=== PATIENT | male | born 1950 | race Caucasian/White ===

== ENCOUNTER → 2021-02-17 13:25 | Outpatient (CLI) | payer MEDICARE, OTHER, SELFPAY ==
[2021-02-17 13:52] LABS: Add Manual Diff / Slide Review NO; Basophils Absolute Auto 0 /uL (0-100); Basophils Percent Auto 0.4 % (0-2); Eosinophils Absolute Auto 400 /uL (0-450); Eosinophils Percent Auto 5.1 % (2-4); Hematocrit 45.3 % (41-53); Hemoglobin 15.5 g/dL (13.5-17.5); Lymphocytes Absolute Auto 1200 /uL (1100-4500); Lymphocytes Percent Auto 15.4 % (25-40); Mean Corpuscular HGB Conc 34.2 % (30-36); Mean Corpuscular Hemoglobin 32.7 PG (26-34); Mean Corpuscular Volume 95.6 fL (80-100); Monocytes Absolute Auto 700 /uL (0-900); Monocytes Percent Auto 8.9 % (3-14); Neutrophils Absolute Auto 5400 /uL (1500-7000); Neutrophils Percent Auto 70.2 % (50-75); Platelet Count 208 X10^3/uL (150-400); Red Blood Cell Count 4.74 X10^6/uL (4.5-5.9); Red Cell Distribution Width 13.7 % (11.6-14.8); White Blood Cell Count 7.7 X10^3/uL (4.5-11.0)
[2021-02-17 13:55] LABS: Appearance Urine UA CLEAR; Bilirubin Urine UA NEGATIVE (NEGATIVE); Color Urine UA YELLOW; Glucose Urine UA NEGATIVE (Negative); Ketones Urine UA NEGATIVE (NEGATIVE); Leukocyte Esterase Urine UA NEGATIVE (NEGATIVE); Nitrite Urine UA NEGATIVE (Negative); Occult Blood Urine UA NEGATIVE (Negative); Protein Urine UA NEGATIVE (Negative); Urobilinogen Urine UA 0.2 E.U./dL (0.2)
[2021-02-17 14:01] LABS: Hemoglobin A1C% w Est Avg Glu 5.4 % (4.0-6.0)
[2021-02-17 14:04] LABS: Bacteria Urine None Seen; Culture Indicated Urine Cult Not Indicated; RBC Urine None Seen (0-5/HPF); Urine Comments Microscopic Normal; WBC Urine None Seen (0-5/HPF)
[2021-02-17 14:17] LABS: BUN Creatinine Ratio 25.3 (6-22); Blood Urea Nitrogen 25 mg/dL (9-20); Calcium 9.8 mg/dL (8.4-10.2); Carbon Dioxide 34 mmol/L (22-32); Chloride 98 mmol/L (98-107); Estimated Glomerular Filt Rate > 60.0 mL/min (>60); Glucose 96 mg/dL (80-110); HEMOLYSIS < 15 (0-50); Potassium 3.7 mmol/L (3.4-5.1); Sodium 137 mmol/L (137-145)
== END ==
PROVIDERS: Referring Provider Orthopaedic Surgery; Visit Provider Orthopaedic Surgery
DX: Z01.818 Encounter for other preprocedural examination (principal); R73.9 Hyperglycemia, unspecified; Z01.812 Encounter for preprocedural laboratory examination; N39.0 Urinary tract infection, site not specified
CPT/HCPCS: 36415; 80048; 81001; 83036; 85025; 93005

== ENCOUNTER → 2021-03-02 13:09 | Outpatient (CLI) | payer MEDICARE, OTHER, SELFPAY ==
--- NOTE | 2021-03-02 | DI.MRI.S_ITS ---
PROCEDURE: MR KNEE RT WO CON INDICATIONS: Unilateral primary osteoarthritis, right knee TECHNIQUE: Noncontrast sagittal PD fast spin echo and T2 fast spin echo with fat saturation, sagittal 3-D FLASH with fat saturation; coronal T1 spin echo and PD fast spin echo with fat saturation, and axial PD fast spin echo with fat saturation through the knee. COMPARISON: None. FINDINGS: Image quality: Excellent. Menisci: Surfacing signal is seen in the anterior horn, compatible with meniscal tear/degeneration. Deficiency of the medial meniscus, compatible with chronic tear and/or meniscectomy. Cruciate ligaments: Patient is status post anterior cruciate ligament repair. Discontinuity of the graft, compatible with full-thickness tear. Femoral and tibial tunnels are in expected positions, without widening or tunnel cysts. The posterior cruciate ligament appears intact. Medial structures: The medial collateral ligament appears intact. The posterior oblique ligament, semimembranosus tendon insertions, oblique popliteal ligament, and meniscocapsular junction appear intact. Lateral structures: The lateral collateral ligament complex is intact. The popliteus tendon appears normal. Iliotibial band appears normal, without findings to suggest friction syndrome. Anterior structures: The quadriceps and patellar tendons appear intact. No patella subluxation. No edema in the infrapatellar fat pad. No localized arthrofibrosis (cyclops lesion) in the anterior intercondylar notch. Bones and cartilage: Signal heterogeneity of the patellar hyaline cartilage with maintained thickness. Small fissure in the medial femoral condyle hyaline cartilage with surface irregularity and heterogeneity. Thinning of the posterior lateral femoral condyle hyaline cartilage small foci of subchondral edema. A 6.2 mm fissure is seen in lateral femoral condyle hyaline cartilage. Tricompartmental osteophytosis. Joint space: Moderate to large joint effusion. A 5.1 x 2.4 x 2.7 cm fluid collection is seen in the popliteal fossa. No intra-articular bodies. IMPRESSION: 1. Disruption of the anterior cruciate ligament graft. 2. Deficiency of the medial meniscus, compatible with chronic tear and or meniscectomy. 3. Surfacing signal in the anterior horn, medial meniscus, compatible with tear/degeneration. 4. Moderate to large joint effusion. 5. 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 6. Medial and lateral hyaline cartilage degenerative change. Dictated by: Bg Noonan M.D. on 03/02/2021 at 14:22 Approved by: Bg Noonan M.D. on 03/02/2021 at 14:40
== END ==
PROVIDERS: PCP Student in an Organized Health Care Education/Training Program; Referring Provider Orthopaedic Surgery; Visit Provider Orthopaedic Surgery
DX: M17.11 Unilateral primary osteoarthritis, right knee (principal); S83.511A Sprain of anterior cruciate ligament of right knee, initial encounter; M96.89 Other intraoperative and postprocedural complications and disorders of the musculoskeletal system; M25.461 Effusion, right knee
CPT/HCPCS: 73721

== ENCOUNTER → 2021-05-19 08:42 | Outpatient (CLI) | payer MEDICARE, OTHER, SELFPAY ==
[2021-05-19 12:40] LABS: COVID19 -Nasal RAPID Negative (Negative)
== END ==
PROVIDERS: PCP Student in an Organized Health Care Education/Training Program; Visit Provider Nurse Practitioner Family
DX: Z20.822 Contact with and (suspected) exposure to COVID-19 (principal)
CPT/HCPCS: 87635; C9803

== ENCOUNTER 2021-05-21 11:09 | Observation (INO) | payer MEDICARE, OTHER, SELFPAY ==
[2021-05-12 08:31] VITALS: BMI 33.7
[2021-05-20] VITALS (15 sets, daily range): BP systolic 127–168; BP diastolic 68–102; PULSE 66–83; RESP 12–20; TEMP 36.4–37.4; O2SAT 92–96; BMI 33.7
--- NOTE | 2021-05-20 06:30 | DI.RAD.S_ITS ---
PROCEDURE: XR KNEE RT 1TO2V INDICATIONS: prosthesis placement TECHNIQUE: Two view(s) of the knee acquired. COMPARISON: None. FINDINGS: Bones: Patient is status post knee joint arthroplasty. Hardware components are in expected positions. There are two small screws along the medial tibial plateau. Visualized bony structures are intact. Soft tissues: Overlying postoperative changes are noted. An intra-articular drain is present. IMPRESSION: Expected postoperative appearance of right knee arthroplasty. Dictated by: Ibis Nelson M.D. on 05/20/2021 at 14:44 Approved by: Ibis Nelson M.D. on 05/20/2021 at 14:45
[2021-05-20] MEDS: PREGABALIN 75 MG CAPSULE PO (08:50)
[2021-05-20] MEDS: ACETAMINOPHEN 325 MG TABLET 975 MG PO (08:50)
[2021-05-20] MEDS: CELECOXIB 200 MG CAPSULE PO (08:50)
[2021-05-20] MEDS: ALBUTEROL 2.5 MG/3 ML NEB (ADULT) INH (09:39)
[2021-05-20] MEDS: LACTATED RINGERS 1,000 ML 42 ML IV ×2 (09:39→11:55)
[2021-05-20] MEDS: VANCOMYCIN 1,000 MG/200 ML PIGGYBACK 200 MG IV (09:39)
--- NOTE | 2021-05-20 10:34 | PM.PREOP ---
Pre-operative Note COVID-19 COVID-19 status: Negative Interval Note History & Physical reviewed/Exam performed by Physician: Yes Changes to H&P: No
[2021-05-20] MEDS: CEFAZOLIN 2 GM/20 ML SYRINGE IV ×2 (11:18→18:33)
[2021-05-20] MEDS: TRANEXAMIC ACID 1,000 MG VIAL 1000 MG INJ ×2 (11:32→13:46)
--- NOTE | 2021-05-20 11:42 | SUR.OPER ---
Supine on padded OR bed. Pillow under head, arms secured on padded armboards <90 degree abduction. Safety belt across torso. Non-operative leg secured with tape over blanket over lower leg. Operative leg secured in DeMayo/Alex/Nathe positioner. Foam padded brace at thigh of operative leg.
[2021-05-20] MEDS: BUPIVACAINE LIPOSOME 266 MG/20 ML VIAL INJ (11:51)
[2021-05-20] MEDS: BUPIVACAINE 0.25% (PF) 60 ML, EPINEPHrine 0.3 MG INJ (11:52)
--- NOTE | 2021-05-20 14:02 | PM.OP.1 ---
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 He had prior major injury was and chronic instability. He has undergone a previous right ACL reconstruction. Was noted to have some persistent medial collateral ligament instability. He has retained internal fixation. Non-operative management has failed and the patient has requested total knee replacement. The risks, benefits and alternatives to surgery were discussed with the patient prior to proceeding. Risks discussed included, but were not limited to, failure to relieve pain, stiffness, infection, nerve damage, deep venous thrombosis, pulmonary embolism, stroke, coma, heart attack, permanent paralysis and , as well as the potential need for eventual revision of the prosthetic. Surgeon: Rebecca Huang Foreman/Pile Driving And Erection: Sherita Ortega Anesthesia Type: General and Spinal Operative Notes Findings: Severe arthritic change right knee, retained internal fixation removed without difficulty, adequate quality bone, evidence of chronic MCL instability ligament was repaired in addition to semi constrained knee arthroplasty. Closure Type: primary Specimen(s): none sent Prosthetic devices, grafts, tissues, transplants, or devices: Huang and nephew size 7 femur, size 7 tibia, +10 constrained polyethylene, two 3.5 mm suture anchors, 38 mm patella Applied: drain(s) Estimated Blood Loss (mL): 250 Blood products transfused: none Tourniquet time (min): 110 Procedure in detail: The patient was seen in the pre-operative area, where the patient identified the right knee as the operative site and this was marked with my initials. The patient received pre-operative antibiotics, and was taken to the operating room and placed on the operative table in the supine position. After satisfactory anesthesia, a multimedia instructional designer out was performed. The right leg was encircled with a tourniquet about the proximal thigh, and the leg was prepared from the toes to the tourniquet with ChloroPrep in the usual fashion and draped through sterile drapes. The leg was elevated and exsanguinated with Eschmark bandage and the tourniquet inflated to [250] mmHg pressure. The knee was approached through an approximately 22 cm incision centered over the patella and carried into the knee through a medial parapatellar arthrotomy. The incision was extended distally to allow removal of the retained internal fixation in the tibia. Dissection was carried out down distally and the screw was carefully identified and removed removing both the screw and the washer. There were retained internal sutures. A Portion of the medial and lateral meniscus was resected. Soft tissue was carefully mobilized around the patella the patella was measured with a caliper. Bone was resected from the patella and the patellar height was reconstituted with up an appropriate sized patellar component. A cover was then placed on the patella. A small amount of additional medial and lateral meniscus was resected. There was gross instability of the medial collateral ligament. The ACL reconstruction had failed. The distal femur was cut at 5?. A [+2] cut was used. It looked like an appropriate distal femoral cut and the cut was made without difficulty. The screw in the femur was not in the way of the intramedullary petrona. An extramedullary guide was used for the tibial cut. 10 mm was resected off the least affected side.The tibia was prepared. The rotation was assessed. The patient was placed in extension residual medial and lateral meniscus as well as any residual bone was carefully resected. [No] additional tibia was resected. Hemostasis was achieved especially posteriorly. Additional local was injected into the posterior capsule. The extension gap was assessed and additional releases for gap balancing were performed as necessary. There was some instability of the medial collateral ligament. I did some additional mild release on the lateral side but did not want to clair an insufficient medial collateral ligament. There was evidence of a bony avulsion of the insertion of the medial collateral ligament on the tibial side. A grass this tissue and it did appear to have some adequate competence. [place] that probably could do a medial collateral ligament repair in addition to using a more constrained poly. It was checked with the gap radio station audio engineer. The femoral component was trial was placed and the notch was finished. The rotation was assessed and the appropriate size femoral guide was placed on the distal femur and finishing cuts were made. There is no evidence of notching. The screw in the femur was removed after resecting a portion of the bone for the notch was noted that it would have been in the way of the box for the notch without removing it but it was removed without difficulty. The anterior, posterior and chamfer cuts were then made. The posterior osteophytes and soft tissues were then removed. The posterior capsule was injected with part of a mixture of 60 ml 0.25% Marcaine mixed with 20 ml Exparel for post operative pain control. The remainder of this mixture was injected into the capsule and subcutaneous tissues during cement curing. The tibial and femoral components were then placed and the knee placed through a range of motion. Range of motion was [0-130], with adequate stability throughout the range. Multiple suture anchors were placed in the posterior medial aspect of the tibia and the tissue that was noted from the medial collateral ligament was carefully mobilized. The trials were then removed, and the tibia was finished. Several of the suture anchor stitches were repaired but I left some and tied for repair after placement of final poly. The bone was prepared with pulsatile lavage, and dried with a sponge. Cement was applied and the final prosthetics placed. Excess cement was removed during and after cement curing. A brief Betadine soak was performed. After confirming there was no extruded cement posteriorly, the final tibial insert was placed. Final MCL repair was performed. The knee was copiously irrigated and the tourniquet deflated. Hemostasis was obtained with the Bovie cautery. A drain was placed and brought out superolaterally. The capsule was closed with interrupted nonabsorbable suture. The subcutaneous layer was closed with barbed sutures, and the skin with a running 3-0 V-Lock suture and Surgical glue. An Aquacel Ag dressing was applied and the patient was taken to recovery having tolerated the procedure well. Complications: none Post-operative Condition: stable Disposition: Acute Care Plan for aftercare: The patient will be maintained on a standard total knee replacement protocol with weight bearing as tolerated. The patient will receive aspirin and sequential compression devices for DVT prophylaxis. The patient will be discharged home when safe for the home environment.
[2021-05-20] MEDS: OXYCODONE IR 5 MG TABLET PO (14:28)
[2021-05-20] MEDS: fentaNYL 100 MCG/2 ML INJ IV ×2 (14:29→14:50)
[2021-05-20] MEDS: LACTATED RINGERS 1,000 ML 120 ML IV (14:32)
--- NOTE | 2021-05-20 14:47 | PC.NURSE ---
Day shift: Dr Huang aware of Pt drinking approx [address] Huang to order CIWA and CIWA medication.
--- NOTE | 2021-05-20 15:32 | PC.NURSE ---
Day shift: Pt on AC unit at approx 1530 from PACU. He is A&Ox4. Calm and cooperative with care. 2L NC 95%. Reports rt knee pain 09/28. VS WNL. PPP and CMS ok. LINSEY wrap and Aquacel CDI. Paolo-vac is clamped at this time. Tolerating SCD's. No Gregory. Oriented to room and call light. Call light in reach. Bed alarm is on. High fall risk for now.
--- NOTE | 2021-05-20 15:38 | SUR.PHASEI ---
05/20/[id number]-Ybgg awake,oriented x4, and meets criteria for transfer to room. Vss. Report to Les ARMANDO by phone. Reported by PANTOGRAPH TRANSFERRER and anesthesia about amount of vodka per day patient goes thru (calculated to be 13 shots in conversion). no withdrawl seen. Patient in good spirits telling jokes . pain down to 5/10. offered 2nd pain pill, since goal is 3/10. Patient refuses for now. Passed info on to RN on floor. dressing rle wnl. moves BLE well/strongly and no numb/tingling/paresthesia per patient report. csm wnl rle. Hemovac remains clamped off from OR. 1520-to floor on 2l nc oxygen, 2 bags of clothes and walker with patient to room 220 via bed. handoff at room at 1530.
[2021-05-20] MEDS: LACTATED RINGERS 1,000 ML 100 ML IV (15:45)
[2021-05-20] MEDS: IBUPROFEN 400 MG TABLET PO ×2 (16:08→20:52)
[2021-05-20] MEDS: ACETAMINOPHEN 325 MG TABLET 650 MG PO ×2 (16:08→20:51)
--- NOTE | 2021-05-20 16:57 | PC.NURSE ---
Day shift: Left message on Dr Huang's cell about ordering CIWA, based on Pt's Hx. No orders at this time (1700).
--- NOTE | 2021-05-20 18:38 | PC.NURSE ---
Day shift: Pt with no s/s of ETOH withdrawal. No nausea after dinner. Pain rt knee remains 5/10. Call light in reach and bed alarm is on.
[2021-05-20] MEDS: OXYCODONE IR 10 MG TABLET PO (19:28)
--- NOTE | 2021-05-20 19:38 | PC.NURSE ---
Dr. Huang seen pt. @ 1937. Hemovac was clamped @ 1937 will remove the clamp after 2 hrs. CIWA assessment done score @ zero. C/O pain 10 medicated with 10 mg. of Oxycodone. Checked VS B/P 145/80, HR. 71, RR 16 & temp. 97.6, 1 liter 02/NC SPO2 93-94%. Will cont. POC & monitor.
[2021-05-20] MEDS: ALBUTEROL/IPRATROPIUM 3 ML AMPUL INH (20:32)
[2021-05-20] MEDS: BUDESONIDE 0.5 MG/2 ML NEB INH (20:33)
[2021-05-20] MEDS: ASPIRIN EC 81 MG TABLET PO (20:52)
[2021-05-20] MEDS: DOCUSATE 100 MG CAPSULE PO (20:52)
[2021-05-20] MEDS: VIT C/E/ZN/COPPR/LUTEIN/ZEAXAN CAPSULE 1 CAP PO (20:52)
--- NOTE | 2021-05-20 21:57 | PC.NURSE ---
Hemovac unclamped @2117, pt. stood up @ the bedside & voided 550 cc of clear urine.
[2021-05-21] MEDS: IBUPROFEN 400 MG TABLET PO ×4 (00:35→13:24)
[2021-05-21] MEDS: CEFAZOLIN 2 GM/20 ML SYRINGE IV (02:11)
[2021-05-21] MEDS: SODIUM CHLORIDE 0.9% FLUSH 10 ML IV ×2 (02:30→08:49)
[2021-05-21 04:00] VITALS: BP 137/86; PULSE 64; RESP 20; TEMP 36.3; O2SAT 93
[2021-05-21 05:55] LABS: Hematocrit 33.7 % (41-53); Hemoglobin 11.6 g/dL (13.5-17.5)
--- NOTE | 2021-05-21 06:28 | PC.NURSE ---
0620 Dr. Pompa receiving distribution station operator for Dr. Huang to notified that HV put out 410 cc from 2300 to 0612. Also reported H&H was 11.6 & 33.[address] order received. Dr. Pompa stated Dr. Huang will see patient this morning. Maria Luisa Valdez RN coordinator also notified, rechecked dressings & tamir wrap this morning it is clean, dry & intact. Will report to day RN.
[2021-05-21 07:45] VITALS: BP 108/56; PULSE 62; RESP 18; TEMP 36.8; O2SAT 97
[2021-05-21] MEDS: OXYCODONE IR 10 MG TABLET PO ×2 (08:48→14:28)
[2021-05-21] MEDS: polyethylene glycoL 3350 17 GM POWD.PACK PO (08:48)
[2021-05-21] MEDS: DOCUSATE 100 MG CAPSULE PO (08:48)
[2021-05-21] MEDS: VIT C/E/ZN/COPPR/LUTEIN/ZEAXAN CAPSULE 1 CAP PO (08:49)
[2021-05-21] MEDS: ASPIRIN EC 81 MG TABLET PO (08:49)
[2021-05-21] MEDS: ACETAMINOPHEN 325 MG TABLET 650 MG PO ×2 (08:49→14:28)
--- NOTE | 2021-05-21 10:08 | PC.NURSE ---
Day shift: Per Dr Huang -clamp drain for 2 hours. Unclamp for [address] Huang with results. Plan is to d/c home later today.
--- NOTE | 2021-05-21 10:35 | PT.IIE ---
Current Diagnoses Unilateral primary osteoarthritis, right knee (05/20/21) Other internal derangements of right knee (05/20/21) Surgery Performed Operation Date: 05/20/21 10:45 Actual Procedures p Total Knee Arthroplasty & removal of internal fixation, repair medial collateral ligament(Right) - Rebecca Huang MD Medical History (Last Updated 05/12/21 @ 08:54 by Jalyn Darling RN) Arthritis Asthma COPD (chronic obstructive pulmonary disease) Deviated septum Easy bruisability Hearing impaired HTN (hypertension) Osteoarthritis Prostate cancer (2013) Physical Therapy Inpatient Evaluation/Re-Eval M1 PT/OT-IP Prior Functional Status Start: 05/21/21 10:19 Freq: Status: Active Protocol: Document 05/21/21 09:34 MB (Rec: 05/21/21 10:35 MB [id number]) Medical Review Prior Functional Status Medical History Reviewed Yes Diet/Fluid Consistency Regular Communication WNLs Mobility and Gait I Activities of Daily Living and IADL's I Prior Functional Level (Other details) I Social History Household Members none Living Arrangements House Number of Floors (Floors) One Floor Number of Stairs To Enter/Railing? 2 steps and no rail to enter Home Environment Standard Height Toilet Home Equipment Front Wheel Walker Employment Status Retired Additional Social History Comment Pt states that he has renters living in the bottom floor of his house, a daughter and son on the property as well but he does not anticipate a lot of assist at d/c. He keeps his cell phone on him, has microwave meals available and is scheduled for OPPT next week. M2 PT-IP Current Condition Start: 05/21/21 10:19 Freq: Status: Active Protocol: Document 05/21/21 09:34 MB (Rec: 05/21/21 10:35 MB [id number]) Physical Therapy Current Condition Current Condition Evaluation Date 05/21/21 Treatment Diagnosis R TKA Onset Date 05/20/21 M3 PT-IP Subjective Start: 05/21/21 10:19 Freq: Status: Active Protocol: Document 05/21/21 09:34 MB (Rec: 05/21/21 10:35 MB [id number]) Subjective Physical Therapy Visit Type Type Initial Evaluation Visit Start Time 09:34 Visit Stop Time 10:07 Total Visit Minutes 33 Number of MATERIALS SCIENTIST Visits 0 Physical Therapy Visit Comments Patient Comments Pt states that he tried to get up on his leg yesterday and it didn't go well. Patient Goals To go home Therapy Pain Assessment Pain When Pain Assessed At Rest Pain Present Pain Present Pain Reported Location rt knee Intensity 3 Scale Used Numeric (0 - 10) Description Acute Pain Management Techniques Re-positioning,Timing of Activity with Medications M4 PT-IP Mobility and Gait Start: 05/21/21 10:19 Freq: Status: Active Protocol: Document 05/21/21 09:34 MB (Rec: 05/21/21 10:35 MB [id number]) PT-Bed Mobility Assessment Sit to Supine Sit to Supine Independent,Head of Bed Elevated,Bedrails Scooting Scooting to Edge of Bed Independent PT-Transfer Assessment Sit to and From Stand Sit to and from Stand Independent Equipment Transfer Assistive Device Gait Belt,Front Wheeled Walker Orthotic/Prosthetic Devices or Brace: No Transfers Transfer Destination Chair Transfer Technique Stand Step Pivot Transfer Ability Level of Assist Independent Comments Mobility Comments Pt mobilizes well in the bed, to the edge of bed, up to the walker and to chair with walker after gait. He backs up to the chair and reaches for it before sitting. He does not require cues to push up from the bed. PT adjusts his walker from home and pt uses it for gait. Gait Assessment Gait Gait Assistance Required: Independent,Standby Assistance Distance (Feet) 100 Able to Maintain Weight Bearing Status Yes During Gait Assistive Devices Assistive Device Gait Belt,Front Wheeled Walker Orthotic/Prosthetic Devices or Brace: No Gait Deviations General Gait Pattern Antalgic,Decreased Stride Length,Decreased Feet Clearance,Flexed Trunk Factors Limiting Gait Function Factors Limiting Gait Function Decreased Strength,Limited Range of Motion,Pain,Poor Balance Comments Gait Comments Pt gait trains 50'x4 today with slow gait, decreased step -length and foot clearance with right foot drag and pt reporting that right leg feels imbalanced if it extends too much. His pattern is step-to with heavy reliance upon the rolling walker and he requires cues to keep feet inside walker and not to step too close to the front of it. No LOB with gait with walker today. Stair Climbing Assessment Evaluation Level of Assist On Stairs Minimal Assistance,1 Person Assistance Devices Stair Climbing Assistive Devices Front Wheel Walker Technique/Endurance Stair Climbing Direction Ascend and Descend Stair Climbing Technique Step to Step Number of Steps Climbed 2 Query Text: Stair Climbing Set # Repetitions (reps) 1 Comments Stair Climbing Comments Stair training with RW in front and pt going up the steps backwards as he does not have a rail at home. Ascend left foot first and right foot second, PT in front blocking walker. Pt performs well and states he feels he can do this with person who is pickin him up from the hospital. His carport is covered and he does not anticipate snow on it. PT-Balance Assessment Sitting Balance and Reactions Static Sitting Balance Ability Normal Dynamic Sitting Balance Ability Normal Standing Balance and Reactions Static Standing Balance Ability Good Dynamic Standing Balance Ability Good Device Used RW M5 PT-IP Objective Assessments Start: 05/21/21 10:19 Freq: Status: Active Protocol: Document 05/21/21 09:34 MB (Rec: 05/21/21 10:35 MB [id number]) Orientation Orientation/Cognition Level of Alertness Alert Orientation Name,Age,Birthday,Month,Date, Year,Day of Week,Place, Situation Language Function Ability No Deficits Noted Safety Awareness Understands Safety Issues Memory Description No Deficits Noted Gross Range of Motion Upper Extremity ROM Assessment Within Functional Limits Lower Extremity ROM Assessment Right Impaired Impairments Decreased ROM right knee with dressing limiting true range assessment. He lacks full knee extension with gait and largely self-limits range Strength Upper Extremity Strength Assessment Within Functional Limits Lower Extremity Strength Assessment Right Impaired Comments Strength Comments MMT RLE deferred d/t pain and he presents with weakness in all joints functionally with gait--slides foot across the floor and decreased DF, heel strike and toe push off M6 PT-IP Treatment Start: 05/21/21 10:19 Freq: Status: Active Protocol: Document 05/21/21 09:34 MB (Rec: 05/21/21 10:35 MB [id number]) Physical Therapy Treatment Exercises Exercises Ankle Pumps,Quad Sets,Heel Slides,Short Arc Quads,Seated Knee Flexion/Extension Education Education Provided Weight Bearing Status,Safety M7 PT-IP Assessment and Plan Start: 05/21/21 10:19 Freq: Status: Active Protocol: Document 05/21/21 09:34 MB (Rec: 05/21/21 10:35 MB [id number]) PT Summary Assessment and Plan Potential Rehabilitation Potential Good Status of Condition at Evaluation Stable Summary Assessment Summary Pt is a 71 y/o male presenting with decreased range of motion, strength and function of his right knee s/p right TKA. He requires heavy reliance upon RW for gait training and requires cues to properly use walker. He is CGA to then mod I with gait with walker. He requires min A for the walker to ascend and descend two steps and his neighbor will assist him in the house. He is set-up for OPPT and does not have anyone staying with him when he gets home, though family is on the same property. He keeps his cell phone on him. PT does encourage pt to have someone stay with him for a couple of nights. His BP and HR do not read well with standard cuff and when larger cuff donned on left UE after gait in sitting , BP is 107/85. Will d/c acute PT. Frequency of Treatment Frequency Of Treatment Discharge Weight Bearing Status Weight Bearing Status Weight Bear as Tolerated Recommendations To Nursing Amount of Assist Needed Standby Assistance Discharge Recommendations PT Discharge Recommendations Home with Assistance, Outpatient PT Transportation Needs at Discharge Private Vehicle
--- NOTE | 2021-05-21 10:44 | PM.PNPO.1 ---
Subjective Subjective Date Patient Seen: 05/21/21 Time Patient Seen: 10:45 Interval history: He notes he is doing well. Minimal pain. He is ambulating well in the alb[place]. Did have some moderate drainage overnight. He is not lightheaded when he ambulates. Exam Vital Signs (past 8 hours): - 05/21/21 04:00 05/21/21 07:45 Temperature 97.4 F L 98.2 F Pulse Rate 64 62 Respiratory Rate 20 18 Blood Pressure 137/86 108/56 L Pulse Oximetry 93 97 Oxygen Delivery Method Nasal Cannula Oxygen Flow Rate 0 Narrative Exam Narrative: Dressing is intact Hemovac drain is in place appears to be appropriately clotted. Calf is soft, is able to do an active straight leg raise is neurologically intact distally Objective Labs Result Diagrams: 05/21/21 05:34 Labs: Laboratory Results - last 24 hr 05/21/21 05:34 Hgb 11.6 L Hct 33.7 L PFSH Medical History (Updated 05/12/21 @ 08:54 by Jalyn Darling RN) Arthritis Asthma COPD (chronic obstructive pulmonary disease) Deviated septum Easy bruisability Hearing impaired HTN (hypertension) Osteoarthritis Prostate cancer (2013) Surgical History (Updated 05/12/21 @ 08:51 by Jalyn Darling RN) History of vasectomy (~1975) Hx of colonoscopy with polypectomy Hx of knee surgery (2012) Social History household members: none Smoking Status: Former smoker alcohol intake: current Assessment & Plan Post-op Postoperative Procedures: Procedures Operation Date: 05/20/21 10:45 Actual Procedure Side Surgeon p Total Knee Arthroplasty & removal of internal fixation, repair medial collateral ligament Right Rebecca Huang MD Postoperative day: 1 Postoperative status: doing well Postoperative status narrative: Doing well postoperative day 1. Slight excessive drainage but decreasing. We will clamp a strain for 2 hours and then unclamp it. Postoperative plan: routine post-op care Postoperative plan narrative: Doing reasonably well. We are going to discharge him to home in the afternoon.
[2021-05-21 11:20] VITALS: BP 116/77; PULSE 67; RESP 18; TEMP 37.2; O2SAT 93
--- NOTE | 2021-05-21 13:03 | PC.NURSE ---
Day shift: Paolo-vac unclamped at [address] Huang. Will measure output in 1 hour and report finding back to her.
--- NOTE | 2021-05-21 14:22 | PC.NURSE ---
Day shift: Paolo-vac put out 130mls and Dr Huang informed. Per Dr Huang it is OK to d/c drain and Pt can go home now.
--- NOTE | 2021-05-21 14:49 | CM.IDA ---
Initial DCP Assessment Note Pt is a 71 yo male, resident of [place], now POD#1 from [facility] TKA by Dr Huang PCP: Allison Negron Payer: NIGEL/Fredy Reviewed chart, pt discussed in multidisciplinary rounds this morning. Therapy has cleared pt for return home w/family to assist and pt has planned for home, DC order from Ortho has already been initiated this morning. No needs expected from DC planning team although will remain available in case this changes today. ANDREWS Olmos
--- NOTE | 2021-05-21 14:54 | PC.NURSE ---
Day shift: Paperwork signed and all questions answered. Paolo-vac removed and dressed per Dr Huang verbal instructions. Pt has all personal belongings with him now. His friend is driving him home. Taken to that car via WC by CONSULTING MANAGER. Aquacel remains CDI. Paolo-vac site covered with ea 4x4 gauze and ABD dressing and wrapped with Coban and LINSEY wrap re-applied (per Dr Huang). CMS remains intact w/ PPP. Left unit at approx 1500. Next pain med dose times written and given to Pt. Med script given to Pt and he bakari drop off at his preferred pharmacy. Encouraged to use I.S. as instructed and to eat plenty of water. Encouraged to not drink any alcohol until his wound/op-site is healed.
== END 2021-05-21 15:03 | disposition home or self-care (01) ==
LOC: OR 11:31 → AC 11:31
PROVIDERS: Admitting Provider Orthopaedic Surgery; PCP Student in an Organized Health Care Education/Training Program; Referring Provider Orthopaedic Surgery; Visit Provider Orthopaedic Surgery
PROC: 0SRC0JZ Replacement of Right Knee Joint with Synthetic Substitute, Open Approach (ICD-10-PCS; CPT 27447; principal; 2021-05-20 10:45)
DX: M17.11 Unilateral primary osteoarthritis, right knee (principal); M23.8X1 Other internal derangements of right knee; J44.9 Chronic obstructive pulmonary disease, unspecified; I10 Essential (primary) hypertension
CPT/HCPCS: 27447; 36415; 73560; 85014; 85018; 94640; 97116; 97161; C1776; G0378; C9290; J0171; J0690; J1100; J2250; J2405; J2704; J3010; J7613

== ENCOUNTER → 2021-12-15 09:05 | Outpatient (CLI) | payer MEDICARE, OTHER, SELFPAY ==
[2021-05-20 15:52] VITALS: BMI 33.7
[2021-12-15 11:19] LABS: COVID19 -Nasal RAPID Negative (Negative)
== END ==
PROVIDERS: PCP Student in an Organized Health Care Education/Training Program; Visit Provider Surgery
DX: Z20.822 Contact with and (suspected) exposure to COVID-19 (principal); Z01.812 Encounter for preprocedural laboratory examination
CPT/HCPCS: 87635; C9803

== ENCOUNTER 2021-12-16 08:39 | Day surgery (SDC) | payer MEDICARE, OTHER, SELFPAY ==
[2021-05-20 15:52] VITALS: BMI 33.7
--- NOTE | 2021-12-16 | PATH_ITS ---
[facility] Accession Number: [id number] . 01 Material submitted: . PART A: colon - ASCENDING COLON POLYPS X3 PART B: colon - DESCENDING COLON POLYP PART C: sigmoid colon - SIGMOID COLON POLYPS PART D: rectum - RECTAL POLYPS . 01 Diagnosis: A. Ascending Colon, Polyp, Biopsy: Tubular adenoma in 2 of 3 fragments. . B. Descending Colon, Polyp, Biopsy: Tubular adenoma. . C. Sigmoid Colon, Polyps, Biopsy: Hyperplastic polyps. . D. Rectum, Polyps, Biopsy: Hyperplastic polyps. JNL 12/20/2021 1217 Local . 01 Electronically signed: . Kassandra Blanco MD, Pathologist NPI- [id number] . 01 Gross description: . Part A: ASCENDING COLON POLYPS X3: Received in formalin are 3 fragment(s) of beltran, soft tissue measuring 0.8 x 0.5 x 0.2 cm to 0.2 x 0.2 x 0.1 cm submitted entirely in 1 cassette(s) Part B: DESCENDING COLON POLYP: Received in formalin is 1 fragment(s) of beltran, soft tissue measuring 0.4 x 0.3 x 0.2 cm submitted entirely in 1 cassette(s) Part C: SIGMOID COLON POLYPS: Received in formalin are 2 fragment(s) of beltran, soft tissue measuring 0.5 x 0.4 x 0.1 cm to 0.3 x 0.2 x 0.2 cm submitted entirely in 1 cassette(s) Part D: RECTAL POLYPS: Received in formalin are 2 fragment(s) of beltran, soft tissue measuring 0.4 x 0.3 x 0.3 cm to 0.3 x 0.2 x 0.2 cm submitted entirely in 1 cassette(s) /CPE 12/17/2021 0507 Local . 01 Pathologist provided ICD-10: D12.2, D12.4 . 01 CPT . 155295, 534797, 207440, 793520 Specimen Comment: A courtesy copy of this report has been sent to [phone] Performed at: 01 [facility] [address] [place] [address], [place], [place] [id number] MD Bishop Pizarro MD Phone: [phone]
[2021-12-16 09:16] VITALS: BP 147/83; PULSE 64; RESP 16; TEMP 36.6; O2SAT 93; BMI 35.2
[2021-12-16] MEDS: LACTATED RINGERS 1,000 ML 42 ML IV (09:30)
--- NOTE | 2021-12-16 09:41 | PM.HP.1 ---
History of Present Illness History of Present Illness Date Patient Seen: 12/16/21 Time Patient Seen: 09:41 Chief complaint: Colonoscopy Narrative: Erik is a 71-year-old man who is due for colonoscopy. He believes his last was in 2008. He believes he had polyps on his original colonoscopy in the distant past. No known family history of colon cancer. Patient History Medical History (Updated 12/16/21 @ 09:41 by Eran Marsh MD) Arthritis Asthma COPD (chronic obstructive pulmonary disease) Deviated septum Easy bruisability Hearing impaired HTN (hypertension) Osteoarthritis Prostate cancer (2013) Surgical History (Updated 05/12/21 @ 08:51 by Jalyn Darling RN) History of vasectomy (~1975) Hx of colonoscopy with polypectomy Hx of knee surgery (2012) Family & Social History Social History: household members none Tobacco & Substance use: Tobacco type cigarettes Smoking Status Former smoker alcohol intake current alcohol intake frequency 3 or more drinks per day Substance Use Type does not use Meds Home Medications and Allergies Home Medications Medication Instructions Recorded Confirmed Type fluticasone 250 mcg-salmeterol 50 1 inh inhalation QAM 05/12/21 12/16/21 History mcg/dose blistr powdr for inhalation (Advair Diskus) ibuprofen 200 mg capsule 400 mg PO DAILY PRN pain 05/12/21 12/16/21 History lisinopril 20 1 tab PO DAILY 05/12/21 12/16/21 History mg-hydrochlorothiazide 25 mg tablet tiotropium bromide 18 mcg capsule 1 cap inhalation DAILY 05/12/21 12/16/21 History with inhalation device (Spiriva with HandiHaler) vit C 250 mg-vit E 90 mg-zinc 40 1 tab PO BID 05/12/21 12/16/21 History mg-copper 1 mv-lkszpp-grzcar capsule (PreserVision AREDS-2) aspirin 81 mg tablet,delayed 81 mg PO BID #60 tabs 05/21/21 12/16/21 Rx release albuterol sulfate 90 mcg/actuation 1 puff inhalation PRN PRN sob 12/16/21 12/16/21 History aerosol inhaler (ProAir HFA) amlodipine 2.5 mg tablet 5 mg PO DAILY 12/16/21 12/16/21 History Allergies Allergy/AdvReac Type Severity Reaction Status Date / Time No Known Drug Allergies Allergy Verified 12/16/21 09:12 Exam Vital Signs (past 8 hours): - 12/16/21 09:16 Temperature 97.9 F Pulse Rate 64 Respiratory Rate 16 Blood Pressure 147/83 H Pulse Oximetry 93 Oxygen Delivery Method Room Air Oxygen Flow Rate 0 Oxygen Delivery Method Room Air Oxygen Flow Rate 0 Const General: healthy appearing and comfortable Resp Effort & Inspection: normal respiratory effort Assessment & Plan Assessment and plan (1) Colon cancer screening: Status: Acute Plan 71-year-old man with a history of polyps in the distant past. We reviewed the risks and benefits of colonoscopy he would like to proceed. COVID-19 COVID-19 status: Negative Result date/Date tested (Pos, Neg/Pending): 12/15/21 Time Spent With Patient Critical Care time: I spent a total of [] minutes of critical care time on this patient's care today; this time is exclusive of procedural time.
[2021-12-16] MEDS: MIDAZOLAM 5 MG/5 ML VIAL 8 MG IV (10:53)
[2021-12-16] MEDS: fentaNYL 250 MCG/5 ML INJ 200 MCG IV (10:53)
--- NOTE | 2021-12-16 11:03 | PM.OP.COLON ---
Operative Date/Time/Diagnoses Date of procedure: 12/16/21 Time of procedure: 11:03 Pre-op diagnosis: Colon cancer screening Post-op diagnosis: same Procedure & Clinicians Study performed: Colonoscopy Same procedure as scheduled: Yes Surgeon: Eran Marsh Procedure Notes Procedure in detail: Surgeon: Eran Marsh MD Procedure: The patient was brought to the endoscopy suite, placed in left lateral decubitus position. The patient was connected to monitoring devices. A time-out was performed. Sedation was administered. Once the patient was adequately sedated, a digital rectal exam was performed and was normal. The scope was then inserted and advanced to the cecum where the appendiceal orifice was identified and photographed. The scope was then slowly withdrawn over greater than 6 minutes. The mucosa was thoroughly inspected. There was a 4 mm polyp in the ascending colon removed with Jumbo forceps. There were 2 polyps each about 6 mm in the ascending colon each removed with a cold snare. There was a 6 mm polyp in the descending colon removed with a cold snare. There were 2 4 mm polyps in the sigmoid colon removed with Jumbo forceps. There were 2 rectal polyps removed with Jumbo forceps. The scope was retroflexed in the rectum. No abnormalities were noted. The scope was straightened and removed. The patient was awakened and brought to recovery. Versed: 8 mg Fentanyl: 200 mcg EBL: 5 mL Findings: 3 polyps in the ascending colon, 1 polyp in the descending colon, 2 polyps in the sigmoid colon into polyps in the rectum. All polyps were less than 1 cm Scope withdrawal time: 22 Sedation minutes: 44 Post-procedure Recommendations: Will call with biopsy results Disposition: PACU
[2021-12-16 11:05] VITALS: BP 128/80; PULSE 59; RESP 22; TEMP 36.5; O2SAT 95
[2021-12-16 11:10] VITALS: BP 102/79; PULSE 60; RESP 16; O2SAT 95
[2021-12-16 11:16] VITALS: BP 123/63; PULSE 62; RESP 16; TEMP 36.6; O2SAT 95
[2021-12-16 11:20] VITALS: BP 133/78; PULSE 57; RESP 16; TEMP 36.6; O2SAT 96
== END 2021-12-16 11:34 | disposition home or self-care (01) ==
PROVIDERS: PCP Student in an Organized Health Care Education/Training Program; Referring Provider Surgery; Visit Provider Surgery
PROC: 0DJD8ZZ Inspection of Lower Intestinal Tract, Via Natural or Artificial Opening Endoscopic (ICD-10-PCS; CPT 45378; principal; 2021-12-16 10:00)
DX: Z12.11 Encounter for screening for malignant neoplasm of colon (principal); D12.2 Benign neoplasm of ascending colon; D12.4 Benign neoplasm of descending colon
CPT/HCPCS: 45385; 45380; 99152; 99153; J2250; J3010

== ENCOUNTER → 2023-07-20 08:34 | Outpatient (CLI) | payer MEDICARE, OTHER, SELFPAY ==
[2021-05-20 15:52] VITALS: BMI 33.7
--- NOTE | 2023-07-20 | DI.ECHO.S_ITS ---
[facility] +---------+ : : [address] : : : : [id number] : : : : Phone: [phone]+ Echocardiogram Report + + :Name: YVES PALACIOS Study Date: 07/20/2023 Height: 70 in : :[facility] ReadingLocation: Weight: 260 lb : : Gender: Male BSA: 2.3 m2 : :: 1950 Age: 73 yrs BP: 130/85 mmHg: :Reason For Study: PAROXYSMAL ATRIAL FIBRILLATION : :Ordering Physician: LING, : :MAYTE Hill Performed By: Nadeem Potter : :Referring: MAYTE CABRERA : + + Interpretation Summary The study quality was technically difficult. Left ventricular ejection fraction is estimated to be 50 +/- 5%. Diastolic function could not be accurately assessed due to unobtainable data. The right ventricle is mildly dilated. Right ventricular systolic function is mildly reduced. Pulmonary artery pressures cannot be estimated because of the lack of a measurable TR jet velocity but the IVC suggests a CVP of around 3 mmHg. The ascending aorta is mildly enlarged, 4.2 cm. Procedure: A two-dimensional transthoracic echocardiogram with color flow and Doppler was performed. The study quality was technically difficult. There is no prior echocardiogram noted for this patient. The patient was in normal sinus rhythm during the exam. The heart rate ranged between 53-62 bpm during the study. Left Ventricle: The left ventricle is normal in size. Left ventricular ejection fraction is estimated to be 50 +/- 5%. Regional wall motion abnormalities cannot be excluded due to limited visualization. Diastolic function could not be accurately assessed due to unobtainable data. Right Ventricle: The right ventricle is mildly dilated. Right ventricular systolic function is mildly reduced. Atria: The left atrium is not well visualized. Right atrium not well visualized. Mitral Valve: The mitral valve is normal in structure and function. There is no mitral valve stenosis. There is no mitral regurgitation noted. Aortic Valve: The aortic valve is trileaflet. There is no aortic valve stenosis. No aortic regurgitation is present. Tricuspid Valve: The tricuspid valve is normal in structure and function. There is no tricuspid stenosis. No tricuspid regurgitation. Pulmonary artery pressures cannot be estimated because of the lack of a measurable TR jet velocity but the IVC suggests a CVP of around 3 mmHg. Pulmonic Valve: The pulmonic valve is not well visualized. There is no pulmonic valvular stenosis. There is trace pulmonic regurgitation. Great Vessels: The aortic root is normal size. The ascending aorta is mildly enlarged. The IVC is of normal diameter and collapses greater than 50% with a sniff. This suggests a low right atrial pressure of 3 mm Hg. Pericardium/ Pleura There is no pericardial effusion. There is no pleural effusion. MMode/2D Measurements & Calculations LVIDd: 4.6 cm LVOT diam: 2.3 cm LVIDs: 3.3 cm Ao root diam: 4.0 cm FS: 28.1 % asc Aorta Diam: 4.2 cm IVSd: 1.5 cm LVPWd: 1.3 cm LV mcmahon. diameter/BSA (cm/m^2): 2.0 LV sys. diameter/BSA (cm/m^2): 1.4 LA A2 area: 17.5 cm2 RA long axis: 6.5 cm LA A4 area: 21.3 cm2 RA area: 24.8 cm2 LA length (vol): 5.3 cm RA vol: 79.9 ml LA vol: 59.9 ml RA : 34.2 ml/m2 LA vol index: 25.7 ml/m2 IVC diam: 1.8 cm RVD1 (basal): 4.4 cm RVD2 (mid): 3.9 cm TAPSE: 1.8 cm Doppler Measurements & Calculations Ao V2 max: 135.6 cm/sec LVOT Max Rishabh: 106.1 cm/sec Ao V2 mean: 89.1 cm/sec LV V1 max P.5 mmHg Ao max P.4 mmHg LV V1 VTI: 24.4 cm Ao mean P.7 mmHg CHIQUI(I,D): 3.6 cm2 Ao V2 VTI: 28.2 cm CHIQUI(V,D): 3.2 cm2 sev ratio: 0.87 CHIQUI indexed to BSA (cm^2/m^2): 1.5 MV E max rishabh: 55.9 cm/sec PA V2 max: 118.0 cm/sec MV A max rishabh: 86.8 cm/sec PA V2 mean: 71.7 cm/sec MV E/A: 0.64 PA mean P.3 mmHg Med Peak E' Rishabh: 4.9 cm/sec PA pr(Accel): 51.6 mmHg E/E' med: 11.5 Lat Peak E' Rishabh: 5.2 cm/sec E/E' lat: 10.7 E/e' average: 11.1 MV dec time: 0.23 sec SV(LVOT): 100.7 ml Reading Physician:05:24 PM
--- NOTE | 2023-07-22 02:16 | DI.NM.S_ITS ---
DATE OF SERVICE: 07/20/2023 PROCEDURE: Pharmacologic vasodilator stress and rest myocardial perfusion imaging with gating to assess ejection fraction and regional wall motion. ORDERING PROVIDER: Mayte Cabrera M.D. INDICATIONS: The patient is a 73-year-old obese male with exertional dyspnea and paroxysmal atrial fibrillation. CARDIAC STRESS: Per protocol, 0.4 mg of regadenoson was infused with a normal hemodynamic response. He developed minimal dyspnea but had no chest discomfort or other anginal symptoms. His resting ECG shows sinus rhythm with normal ST segments. There are no significant ST-segment shifts with stress. He had occasional isolated PVCs that resolved in recovery but no other arrhythmias. Per protocol, 24.3 millicuries of technetium-99m Myoview was injected and he was imaged 15 minutes later using a gated SPECT acquisition protocol. The day prior while at rest, he had been injected with 27.2 millicuries of technetium-99m Myoview and was imaged 15 minutes later, again using a gated SPECT acquisition protocol. FINDINGS: 1. Raw data. There is marginal tracer uptake with some motion detected that could introduce artifact and evidence for diaphragmatic attenuation. The lung/heart ratio is normal at 0.34 with a normal TID ratio of 1.05. 2. Quantitated gated SPECT: Post-stress ejection fraction is estimated at 64% without any focal wall motion abnormality and specifically the inferior wall has normal contractility. The resting ejection fraction is also 64% with mildly increased volumes with a resting end-diastolic volume of 149 mL. 3. Myocardial perfusion imaging: Post-stress supine images show a mild perfusion defect in the mid to distal inferior wall in a pattern consistent with diaphragmatic attenuation, supported by his resolution on the prone images. There are no other perfusion defects. The resting images show an identical perfusion pattern without any areas of improvement. IMPRESSION: 1. Probable normal myocardial perfusion study. 2. Subtle, fixed mid to distal inferior perfusion defect that resolves on prone imaging, most consistent with diaphragmatic attenuation artifact. There is no compelling evidence for any myocardial ischemia or previous myocardial infarction. 3. Normal left ventricular systolic function with borderline increased left ventricular volumes. 4. No angina or ECG evidence of ischemia with pharmacologic vasodilator stress. The patient remained in sinus rhythm throughout with occasional isolated PVCs with stress that resolved in recovery but no other arrhythmias. Erik French - RS/cherie/ec doc#: [id number]/job#: [id number] dd: 07/21/2023 16:35:00 dt: 07/22/2023 01:58:00 DICTATING MD/COPIES TO: Griffin Rodriguez; Mayte Cabrera M.D. COPIES MNE: SHARDA;
== END ==
LOC: ECHO 08:35
PROVIDERS: PCP Student in an Organized Health Care Education/Training Program; Referring Provider Internal Medicine Cardiovascular Disease; Visit Provider Internal Medicine Cardiovascular Disease
DX: I48.0 Paroxysmal atrial fibrillation (principal); I77.89 Other specified disorders of arteries and arterioles; R06.09 Other forms of dyspnea; E66.9 Obesity, unspecified; Z68.37 Body mass index [BMI] 37.0-37.9, adult
CPT/HCPCS: 78452; 93017; 93306; A9502; J2785

== ENCOUNTER → 2023-10-06 08:39 | Outpatient (CLI) | payer MEDICARE, OTHER, SELFPAY ==
[2021-05-20 15:52] VITALS: BMI 33.7
[2023-10-06 10:20] LABS: Estimated Glomerular Filt Rate > 60 mL/min (>60)
== END ==
PROVIDERS: PCP Student in an Organized Health Care Education/Training Program; Referring Provider Radiology Diagnostic Radiology; Visit Provider Radiology Diagnostic Radiology
DX: I77.810 Thoracic aortic ectasia (principal)
CPT/HCPCS: 36415; 82565

== ENCOUNTER → 2023-10-06 08:41 | Outpatient (CLI) | payer MEDICARE, OTHER, SELFPAY ==
[2021-05-20 15:52] VITALS: BMI 33.7
--- NOTE | 2023-10-06 08:43 | DI.CT.S_ITS ---
PROCEDURE: CT ANGIO CHEST INDICATIONS: ASCENDING AORTA DILATION TECHNIQUE: After the administration of intravenous contrast, 2.5 mm thick sections acquired from the lung apices to the posterior lung bases. Maximum intensity projection (MIP) oblique sagittal reformats were then acquired parallel to the aortic arch. For radiation dose reduction, the following was used: automated exposure control. COMPARISON: [facility], CT, CT LOW DOSE LUNG CA SCREENING, 09/06/2022, 9:57. FINDINGS: Image quality: Excellent. Aorta and its attachments: Unchanged ascending aortic aneurysm. On previous image 77/3 it measured 4.4 cm. On current image 74/4 it measures 4.4 cm. This is at the level of the right main pulmonary artery. Lower Neck: No enlarged lymph nodes. Thyroid: No thyroid nodules which require sonographic follow up, per consensus guidelines. Axillae: No enlarged lymph nodes. Chest Wall: Unremarkable. Bones: Unremarkable. Lungs and Pleura: No pneumothorax or pleural effusions. Unchanged scarring, most notably in the left lateral lung base. Right apical greater than left apical pleural parenchymal scarring is unchanged. There is a stable 4 mm pulmonary nodule in the right lower lobe on image 165/2. Heart: Heart size is normal. No pericardial effusion. Moderate coronary artery calcifications. Thoracic Vessels: Pulmonary arteries demonstrate normal size. Mediastinum and Jacquelyn: No enlarged lymph nodes. Esophagus: No wall thickening. No hiatal hernia. Upper Abdomen: Visualized upper abdomen solid organs and bowel loops appear normal. IMPRESSION: 1. Stable size of ascending aortic aneurysm, measuring 4.4 cm. 2. No acute pulmonary process. 3. Stable 4 mm pulmonary nodule, right lower lobe. No findings suspicious for malignancy. Dictated by: Jermaine Ford M.D. on 10/06/2023 at 15:04 Approved by: Jermaine Ford M.D. on 10/06/2023 at 15:11
== END ==
PROVIDERS: PCP Student in an Organized Health Care Education/Training Program; Referring Provider Internal Medicine Cardiovascular Disease; Visit Provider Internal Medicine Cardiovascular Disease
DX: I71.21 Aneurysm of the ascending aorta, without rupture (principal); R91.1 Solitary pulmonary nodule; I25.10 Atherosclerotic heart disease of native coronary artery without angina pectoris
CPT/HCPCS: 36415; 71275; 82565; Q9967

== ENCOUNTER → 2024-01-19 11:44 | Outpatient (CLI) | payer MEDICARE, OTHER, SELFPAY ==
[2021-05-20 15:52] VITALS: BMI 33.7
--- NOTE | 2024-01-19 | DI.CT.S_ITS ---
PROCEDURE: CT SINUS SCREEN WO CON INDICATIONS: Chronic pansinusitis TECHNIQUE: Noncontrast 3.0 mm axial images acquired from the frontal sinuses to the mid-sella, with coronal and sagittal reformats. For radiation dose reduction, the following was used: automated exposure control, adjustment of mA and/or kV according to patient size. COMPARISON: None. FINDINGS: Image quality: Excellent. Maxillary Sinuses: No bony remodeling or destruction. Mild mucosal thickening bilaterally. Ethmoid Air Cells: No bony remodeling or destruction. Moderate mucosal thickening bilaterally. Sphenoid Sinuses: No bony remodeling or destruction. Mild mucosal thickening. Frontal Sinuses: No bony remodeling or destruction. Mild mucosal thickening, most pronounced inferiorly. Ostiomeatal Complexes: Ostiomeatal complexes are opacified on the right and partially opacified on the left. No Damon cells. Miscellaneous: Visualized intra-orbital contents are normal. No lyly bullosa or paradoxical turbinate curvature. Leftward nasal septal deviation and spurring. IMPRESSION: Diffuse paranasal sinus mucosal disease as described above, most pronounced within the ethmoid air cells. Dictated by: Anival Lai M.D. on 01/19/2024 at 13:05 Approved by: Anival Lai M.D. on 01/19/2024 at 13:07
== END ==
PROVIDERS: PCP Student in an Organized Health Care Education/Training Program; Referring Provider Otolaryngology; Visit Provider Otolaryngology
DX: J32.4 Chronic pansinusitis (principal)
CPT/HCPCS: 70486

== ENCOUNTER → 2024-09-23 09:09 | Outpatient (CLI) | payer MEDICARE, OTHER, SELFPAY ==
[2021-05-20 15:52] VITALS: BMI 33.7
--- NOTE | 2024-09-23 09:11 | DI.CT.S_ITS ---
PROCEDURE: CT ANGIO CHEST INDICATIONS: AORTIC ATHEROSCLEROSIS/ASCENDING AORTA DILATION TECHNIQUE: After the administration of intravenous contrast, 2.5 mm thick sections acquired from the lung apices to the posterior lung bases. Maximum intensity projection (MIP) oblique sagittal reformats were then acquired parallel to the aortic arch. For radiation dose reduction, the following was used: automated exposure control. COMPARISON: [facility], CT, CT LOW DOSE LUNG CA SCREENING, 09/06/2022, 9:57. [facility], CT, CT ANGIO CHEST, 10/06/2023, 10:36. FINDINGS: Image quality: Excellent. Aorta: The ascending thoracic aorta measures up to 4.4 cm, as on series 4, image 81. This is unchanged compared to the prior examination. No mural irregularity or contrast extravasation to suggest aortic injury. No dissection flap can be seen. Lower Neck: No enlarged lymph nodes. Thyroid: No thyroid nodules which require sonographic follow up, per consensus guidelines. Axillae: No enlarged lymph nodes. Chest Wall: Unremarkable. Bones: Age-appropriate bony degenerative changes are seen. Accentuated thoracic kyphosis is seen. Lungs and Pleura: No pneumothorax or pleural effusions. No consolidation or suspicious nodules. There is again seen a 4 mm focus of thickening along the right oblique fissure. Heart: Heart size is normal. No pericardial effusion. There is moderate coronary artery calcification. Thoracic Vessels: Pulmonary arteries demonstrate normal size. Mediastinum and Jacquelyn: No enlarged lymph nodes. Esophagus: No wall thickening. No hiatal hernia. Upper Abdomen: Visualized upper abdomen solid organs and bowel loops appear normal. IMPRESSION: Stable ascending thoracic aortic aneurysm, 4.4 cm. Additional findings: Moderate coronary artery calcification Stable 4 mm area of thickening along the right oblique fissure Dictated by: Bryan Ann M.D. on 09/23/2024 at 12:49 Approved by: Bryan Ann M.D. on 09/23/2024 at 12:53
[2024-09-23 09:41] LABS: Estimated Glomerular Filt Rate > 60 mL/min (>60)
== END ==
PROVIDERS: PCP Family Medicine; Referring Provider Internal Medicine Cardiovascular Disease; Visit Provider Internal Medicine Cardiovascular Disease
DX: I71.21 Aneurysm of the ascending aorta, without rupture (principal); I70.0 Atherosclerosis of aorta; I25.10 Atherosclerotic heart disease of native coronary artery without angina pectoris
CPT/HCPCS: 36415; 71275; 82565; Q9967

== ENCOUNTER → 2024-11-20 07:52 | Outpatient (CLI) | payer MEDICARE, OTHER, SELFPAY ==
[2021-05-20 15:52] VITALS: BMI 33.7
== END ==
LOC: RESP 07:53
PROVIDERS: PCP Family Medicine; Referring Provider Internal Medicine; Visit Provider Internal Medicine
DX: J44.89 Other specified chronic obstructive pulmonary disease (principal); Z87.891 Personal history of nicotine dependence; R94.2 Abnormal results of pulmonary function studies
CPT/HCPCS: 94060; 94726; 94729

== ENCOUNTER 2025-01-16 06:05 | Day surgery (SDC) | payer MEDICARE, OTHER, SELFPAY ==
[2021-05-20 15:52] VITALS: BMI 33.7
[2025-01-16] VITALS (7 sets, daily range): BP systolic 106–136; BP diastolic 68–84; PULSE 47–56; RESP 16–17; TEMP 36.2; O2SAT 92–96
--- NOTE | 2025-01-16 | PATH_ITS ---
[facility] Accession Number: [id number] No. of containers..03 Tissue . 01 Material submitted: . PART A: colon - COLON, ASCENDING POLYP X 3 PART B: colon - COLON, DESCENDING POLYP PART C: colon - COLON, SIGMOID POLYP . 01 Diagnosis: Part A: COLON, ASCENDING POLYP X 3: 1. Tubular adenoma. 2. Colonic mucosa with focal mucosal hyperplasia. . Part B: COLON, DESCENDING POLYP: Tubular adenoma. . Part C: COLON, SIGMOID POLYP: Hyperplastic polyp. [facility] 01/24/20251354 Local . 01 Electronically signed: . Bishop Pizarro MD, Pathologist NPI- [id number] . 01 Gross description: . Part A: COLON, ASCENDING POLYP X 3: Received in formalin are 2 fragment(s) of beltran, soft tissue measuring 0.2 x 0.2 x 0.1 cm to 0.3 x 0.2 x 0.1 cm submitted entirely in 1 cassette(s) . Part B: COLON, DESCENDING POLYP: Received in formalin are 3 fragment(s) of beltran, soft tissue measuring 0.5 x 0.2 x 0.2 cm to 1.1 x 0.4 x 0.1 cm submitted entirely in 1 cassette(s) . Part C: COLON, SIGMOID POLYP: Received in formalin is 1 fragment(s) of beltran, soft tissue measuring 0.3 x 0.3 x 0.3 cm submitted entirely in 1 cassette(s) /MARIEL 01/24/20251354 Local . 01 Pathologist provided ICD-10: D12.2, D12.4, K63.5 . 01 CPT . 045165, 980847, 761472 Specimen Comment: A courtesy copy of this report has been sent to [phone] Performed at: [address] [facility], [place], [place] [id number] MD Bishop Pizarro MD Phone: [phone]
[2025-01-16] MEDS: LACTATED RINGERS 1,000 ML 84 ML IV (07:31)
--- NOTE | 2025-01-16 07:38 | PM.HP.IH.1 ---
History of Present Illness History of Present Illness Date Patient Seen: 01/16/25 Time Patient Seen: 07:38 Chief complaint: Colonoscopy Narrative: Erik is a 74-year-old man who had a colonoscopy in 2021. Multiple tubular adenomas were removed. Four of them were adenomatous. [facility] Medical History (Updated 01/16/25 @ 07:39 by Eran Marsh MD) Macular degeneration HLD (hyperlipidemia) GERD (gastroesophageal reflux disease) APARNA (obstructive sleep apnea) Aortic atherosclerosis Ascending aorta dilatation CAD (coronary artery disease) Paroxysmal A-fib Hearing impaired Easy bruisability Osteoarthritis Prostate cancer (2013) HTN (hypertension) Deviated septum Asthma Arthritis COPD (chronic obstructive pulmonary disease) Surgical History (Updated 11/04/24 @ 13:47 by Idalmis Deal RN) Hx of prostate biopsy Hx of cystoscopy History of vasectomy (~1975) Hx of colonoscopy with polypectomy Hx of knee surgery (2012) Social History household members: none Smoking Status: Former smoker alcohol intake: former Meds Home Medications and Allergies Home Medications ?Medication ?Instructions ?Recorded ?Confirmed ?Type fluticasone 250 mcg-salmeterol 50 1 inh inhalation BID 05/12/21 12/13/24 History mcg/dose blistr powdr for inhalation (Advair Diskus) ibuprofen 200 mg capsule 400 mg PO DAILY PRN pain 05/12/21 12/13/24 History lisinopril 20 1 tab PO DAILY 05/12/21 01/16/25 History mg-hydrochlorothiazide 25 mg tablet tiotropium bromide 18 mcg capsule 1 cap inhalation DAILY 05/12/21 01/15/25 History with inhalation device (Spiriva with HandiHaler) vit C 250 mg-vit E 90 mg-zinc 40 1 tab PO BID 05/12/21 12/13/24 History mg-copper 1 [id number] capsule (PreserVision AREDS-2) aspirin 81 mg tablet,delayed 81 mg PO BID #60 tabs 05/21/21 01/16/25 Rx release albuterol sulfate 90 mcg/actuation 2 puff inhalation PRN PRN sob 12/16/21 12/13/24 History aerosol inhaler (ProAir HFA) amlodipine 2.5 mg tablet 5 mg PO DAILY 12/16/21 01/16/25 History apixaban 5 mg tablet (Eliquis) 5 mg PO BID 11/01/24 01/15/25 History azelastine 137 mcg (0.1 %) nasal 1 spray intranasal BID 11/01/24 12/13/24 History spray clobetasol 0.05 % topical ointment 1 applic topical BID 11/01/24 01/16/25 History doxazosin 2 mg tablet 4 mg PO DAILY 11/01/24 01/16/25 History fluticasone propionate 50 1 spray intranasal DAILY 11/01/24 12/13/24 History mcg/actuation nasal spray,suspension metoprolol succinate 25 mg 25 mg PO DAILY 11/01/24 01/16/25 History tablet,extended release 24 hr omeprazole 20 mg capsule,delayed 20 mg PO BID 11/01/24 01/16/25 History release rosuvastatin 10 mg tablet 10 mg PO ONCE PM 11/01/24 01/16/25 History scopolamine base 1 mg over 3 days 1 patch topical Q3D 11/01/24 01/16/25 History transdermal patch cholecalciferol (vitamin D3) 25 25 mcg PO DAILY 11/04/24 12/13/24 History mcg (1,000 unit) tablet Allergies Allergy/AdvReac Type Severity Reaction Status Date / Time No Known Drug Allergies Allergy Verified 01/16/25 07:13 Exam Vital Signs (past 8 hours): - 01/16/25 07:17 Temperature 97.2 F L Pulse Rate 56 L Respiratory Rate 17 Blood Pressure 130/72 Pulse Oximetry 95 Oxygen Delivery Method Room Air Oxygen Delivery Method Room Air Const General: No acute distress Resp Effort & Inspection: normal respiratory effort Assessment & Plan Assessment and plan (1) History of colon polyps: Status: Acute Plan Colonoscopy for a history of polyps Time-Based Coding :: [TOTAL MINUTES] spent with patient and on the chart (including review of chart, obtaining history, exam, reviewing outside data, placing orders, documenting exam and treatment plan, and counseling patient) on [DATE]. 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
--- NOTE | 2025-01-16 08:27 | PM.OP.COLON ---
Operative Date/Time/Diagnoses Date of procedure: 01/16/25 Time of procedure: 08:27 Pre-op diagnosis: History of polyps Post-op diagnosis: same Procedure & Clinicians Study performed: Colonoscopy Same procedure(s) as scheduled: Yes Surgeon: Eran Marsh Anesthesia Type: MAC +/- Procedure Notes Procedure in detail: Surgeon: Eran Marsh MD Anesthesia: Zorina Willis FREELANCE INTERPRETER/TRANSLATOR Procedure: The patient was brought to the endoscopy suite, placed in left lateral decubitus position. The patient was connected to monitoring devices. A time-out was performed. Sedation was administered. Once the patient was adequately sedated, a digital rectal exam was performed and was normal. The scope was then inserted and advanced to the cecum where the appendiceal orifice was identified and photographed. The scope was then slowly withdrawn over greater than 6 minutes. The mucosa was thoroughly inspected. There were 3 small polyps in the ascending colon and were removed with a combination of cold forceps and cold snare. There was a small descending colon polyp removed with cold snare. There was a small polyp in the sigmoid colon removed with cold snare. The scope was retroflexed in the rectum. No other abnormalities were found. The scope was straightened and removed. The patient was awakened and brought to recovery. Scope withdrawal time: 15 minutes Sedation time: 39 minutes EBL: 5 mL Findings: 3 ascending colon polyps, 1 descending colon polyp and 1 sigmoid colon polyp all less than 7 mm Post-procedure Disposition: PACU
== END 2025-01-16 09:03 | disposition home or self-care (01) ==
PROVIDERS: PCP Family Medicine; Referring Provider Surgery; Visit Provider Surgery
PROC: 0DJD8ZZ Inspection of Lower Intestinal Tract, Via Natural or Artificial Opening Endoscopic (ICD-10-PCS; CPT 45378; principal; 2025-01-16 07:45)
DX: Z12.11 Encounter for screening for malignant neoplasm of colon (principal); Z86.0100 Personal history of colon polyps, unspecified; Z87.891 Personal history of nicotine dependence; D12.2 Benign neoplasm of ascending colon; D12.4 Benign neoplasm of descending colon; K63.5 Polyp of colon
CPT/HCPCS: 45385; 45380; J2704